=== PATIENT | male | born 1960 | race Caucasian/White ===

== ENCOUNTER 2016-11-18 11:16 | Emergency (ER) | payer OTHER ==
[~2016-11-18] VITALS: Ht 172.7 cm; Wt 68.0 kg
[2016-11-18 13:30] VITALS: BP 150/90
== END 2016-11-18 13:30 | disposition home or self-care (01) ==
LOC: ED 11:16
DX: M25.461 Effusion, right knee (principal)

== ENCOUNTER 2017-07-18 10:41 | Emergency (ER) | payer OTHER ==
[2017-07-18 10:53] VITALS: BP 139/83
== END 2017-07-18 11:30 | disposition home or self-care (01) ==
LOC: ED 10:41
DX: S52.602A Unspecified fracture of lower end of left ulna, initial encounter for closed fracture (principal); I10 Essential (primary) hypertension; W01.0XXA Fall on same level from slipping, tripping and stumbling without subsequent striking against object, initial encounter; Y93.89 Activity, other specified; Y92.89 Other specified places as the place of occurrence of the external cause; Y99.8 Other external cause status
CPT/HCPCS: A4570; Q0092

== ENCOUNTER 2018-10-23 12:25 | Emergency (ER) | payer OTHER ==
[~2018-10-23] VITALS: Ht 175.3 cm; Wt 87.1 kg
[2018-10-23 12:34] VITALS: BP 145/83; Ht 175.3 cm; Wt 87.1 kg
== END 2018-10-23 15:10 | disposition home or self-care (01) ==
LOC: ED 12:25
DX: S82.001A Unspecified fracture of right patella, initial encounter for closed fracture (principal); I10 Essential (primary) hypertension; Z98.890 Other specified postprocedural states; X58.XXXA Exposure to other specified factors, initial encounter; Y93.89 Activity, other specified; Y92.89 Other specified places as the place of occurrence of the external cause; Y99.8 Other external cause status

== ENCOUNTER 2018-11-18 08:05 | Emergency (ER) | payer OTHER ==
[~2018-11-18] VITALS: Ht 172.7 cm; Wt 84.4 kg
[2018-11-18 09:06] LABS: BASOPHIL % 1.6 % (0-2)
[2018-11-18 09:10] LABS: PLATELET COUNT 105 x10^3mcL (130-400); RED CELL DISTRIBUTION WIDTH 20.8 % (11.5-14.5)
[2018-11-18 09:26] LABS: CALCIUM 8.4 mg/dL (8.5-10.1); CARBON DIOXIDE 29.2 mmol/L (21-32); CHLORIDE SERUM 101 mmol/L (98-107); CREATININE SERUM 0.7 mg/dL (0.7-1.3); GFR1 > 60 mL/min; GLUCOSE SERUM 92 mg/dL (74-106); POTASSIUM SERUM 3.4 mmol/L (3.5-5.1); SODIUM SERUM 136 mmol/L (136-145)
[2018-11-18 09:37] LABS: ALKALINE PHOSPHATASE 131 U/L (46-116); ALT/SGPT 37 U/L (16-63); AST/SGOT 44 U/L (15-37); BILIRUBIN TOTAL 1.1 mg/dL (0.20-1.00); C REACTIVE PROTEIN 0.4 mg/dL (<=0.9)
[2018-11-18 09:39] LABS: ALBUMIN 3.2 g/dL (3.4-5.0)
[2018-11-18 09:42] LABS: FREE T4 0.91 ng/dL (0.76-1.46); FREE THYROXINE INDEX 2.2 ug/dL (1.4-4.5); T4(THYROXINE) 6.5 ug/dL (4.7-13.3)
[2018-11-18 09:47] LABS: CK-MB 0.6 ng/mL (0-3.6)
[2018-11-18 10:07] LABS: T3 TOTAL 1.89 ng/mL
[2018-11-18 10:17] LABS: rbc morphology (normal/abnorm) ABNORMAL (NORMAL); target cell (codocyte) 1+
[2018-11-18 10:30] LABS: ERYTHROCYTE SED RATE 46 mm/hr (0-20)
[2018-11-18 11:24] VITALS: BP 113/79
== END 2018-11-18 11:24 | disposition home or self-care (01) ==
LOC: ED 08:05
PROVIDERS: Specialist
DX: R21 Rash and other nonspecific skin eruption (principal); K74.60 Unspecified cirrhosis of liver; D69.6 Thrombocytopenia, unspecified; I10 Essential (primary) hypertension
CPT/HCPCS: 36415; 36600; 84439; Q0092

== ENCOUNTER 2018-11-20 13:17 | Emergency (ER) | payer OTHER ==
[~2018-11-20] VITALS: Ht 172.7 cm; Wt 86.6 kg
[2018-11-20 13:26] VITALS: Ht 172.7 cm; Wt 86.6 kg
[2018-11-20 17:00] LABS: AMPHETAMINE QUAL UR NONE DETECTED (See below)
[2018-11-20 17:22] VITALS: BP 121/69
== END 2018-11-20 17:22 | disposition home or self-care (01) ==
LOC: ED 13:17
PROVIDERS: Specialist
DX: S61.210A Laceration without foreign body of right index finger without damage to nail, initial encounter (principal); F10.129 Alcohol abuse with intoxication, unspecified; K74.60 Unspecified cirrhosis of liver; I10 Essential (primary) hypertension; Z98.890 Other specified postprocedural states; X58.XXXA Exposure to other specified factors, initial encounter; Y93.89 Activity, other specified; Y92.89 Other specified places as the place of occurrence of the external cause; Y99.8 Other external cause status
CPT/HCPCS: J2001